=== PATIENT | female | born 1980 | race Caucasian/White ===

== ENCOUNTER → 2020-10-12 | Outpatient (CLI) | payer OTHER ==
--- NOTE | 2020-10-12 12:57 | RAD ---
EXAM: Right foot, 2 views. HISTORY: Blunt trauma. COMPARISON: None. FINDINGS: 2 views of the right foot are obtained. There is no acute fracture, dislocation or subluxat ion. There is flattening of the articular aspect of the second metatarsal head osteonecrosis. There i s a tiny plantar spur. There is enthesopathy at Achilles tendon insertion. There is an accessory melody cular. IMPRESSION: 1. No acute osseous finding. 2. Second metatarsal head osteonecrosis/Freiberg's infraction. 3. Small plantar spur. Electronically signed by: Sima Partida MD (10/12/2020 12:54 PM) [id number]
== END ==
LOC: RAD 12:25
PROVIDERS: ATTEND Physician Assistant
DX: M77.8 Other enthesopathies, not elsewhere classified (principal); M25.871 Other specified joint disorders, right ankle and foot
CPT/HCPCS: 73620